=== PATIENT | female | born 1990 | race American Indian/Alaskan Native ===

== ENCOUNTER 2017-03-08 18:02 | Emergency (ER) | payer SELFPAY ==
[2017-03-08 18:14] VITALS: BP 136/70
[2017-03-08 18:56] LABS: Alanine Aminotransferase 16 units/L (7-56); Albumin 4.2 g/dL (3.9-5); Albumin/Globulin Ratio 1.6 %; Alkaline Phosphatase 67 units/L (35-129); Anion Gap 15 mmol/L; BUN/Creatinine Ratio 17; Basophils % (Auto) 0.2 % (0.0-1.8); Blood Urea Nitrogen 12 mg/dL (7-17); Carbon Dioxide 27 mmol/L (22-30); Chloride 102.3 mmol/L (98-107); Eosinophils % (Auto) 3.5 % (0.0-4.3); Glucose 96 mg/dL (65-100); Hematocrit 39.3 % (30.3-42.9); Hemoglobin 13.3 gm/dl (10.1-14.3); Lipase 24 units/L (13-60); Mean Corpuscular HGB Conc 34 % (30-34); Mean Corpuscular Hemoglobin 31 pg (28-32); Mean Corpuscular Volume 90 fl (79-97); Platelet Count 311 K/mm3 (140-440); Potassium 4.1 mmol/L (3.6-5.0); Red Blood Count 4.34 M/mm3 (3.65-5.03); Red Cell Distribution Width 14.2 % (13.2-15.2); Sodium 140 mmol/L (137-145); Total Protein 6.9 g/dL (6.3-8.2); White Blood Count 10.6 K/mm3 (4.5-11.0)
[2017-03-08 22:14] LABS: Bacteria,Urine 1+ /HPF (Negative); Bilirubin,Urine NEG (Negative); Blood,Urine NEG (Negative); Ketones,Urine NEG (Negative); Leukocyte Esterase,Urine LG (Negative); Mucus,Urine FEW /HPF; Nitrite,Urine NEG (Negative); Protein,Urine <15 mg/dL mg/dL (Negative); Urobilinogen,Urine < 2.0 mg/dL (<2.0)
== END 2017-03-09 00:35 | disposition left against medical advice (07) ==
LOC: ED 18:02
CPT/HCPCS: 36415; 80053; 81001; 83690; 84702; 85025